=== PATIENT | male | born 1995 | race American Indian/Alaskan Native ===

== ENCOUNTER 2017-02-22 07:53 | Outpatient (CLI) | payer MEDICAID ==
--- NOTE | 2017-02-22 09:49 | Magnetic Resonance Report ---
MRI OF THE BRAIN WITHOUT CONTRAST: HISTORY: Seizure, autism PROCEDURE: Multiplanar, multisequence MR imaging of the brain without IV contrast was performed. FINDINGS: The brain parenchyma signal intensity and its verdugo white interface are within normal limits on all sequences. No evidence for acute ischemia, hemorrhage or mass. No chronic infarct or extra-axial fluid collection. The midline structures are central. The basal cisterns are patent. Normal ventricular size. The medial temporal lobes are unremarkable. The orbital cavities and sella turcica demonstrate no abnormality. Minimal focal mucosal thickening is noted in the inferior maxillary sinuses. The remaining paranasal sinuses and mastoid air cells are clear. IMPRESSION: Unremarkable non-enhanced MRI of the brain. Minimal chronic maxillary sinus disease.
== END 2017-02-22 07:54 | disposition home or self-care (01) ==
LOC: MRI 07:53
PROVIDERS: ATTEND Psychiatry & Neurology Neurology
DX: G40.411 Other generalized epilepsy and epileptic syndromes, intractable, with status epilepticus (principal); F84.0 Autistic disorder; J32.0 Chronic maxillary sinusitis
CPT/HCPCS: 70551